=== PATIENT | female | born 1975 | race Caucasian/White ===

== ENCOUNTER 2024-01-19 02:10 | Day surgery (SDC) | payer BC, SELFPAY ==
[2024-01-05 14:04] VITALS: BMI 31.8
[2024-01-19 12:00] VITALS: BP 132/87; PULSE 107; RESP 20; TEMP 37.1; O2SAT 98; BMI 34.1
[2024-01-19] MEDS: LACTATED RINGERS 1,000 ML 150 ML IV CONT (12:18)
[2024-01-19 12:21] LABS: Glucose Point of Care 158 mg/dl (65-105)
--- NOTE | 2024-01-19 12:49 | PM.HPGS ---
History of Present Illness History of Present Illness Consent: Risks, benefits, and alternatives have been discussed and questions answered. Patient agrees to proceed with procedure. Chief complaint: Other fecal abnormalities Narrative: Carola Uriostegui is a 49 year old female here for first colonoscopy, + cologuard Review of Systems Review of Systems: All systems reviewed & are unremarkable except as noted in HPI and below PMFSH Past Medical History Medical History (Updated 12/06/23 @ 09:40 by TADEO Alcaraz) Anxiety disorder, unspecified BMI 34.0-34.9,adult BMI 35.0-35.9,adult BMI 36.0-36.9,adult BMI 37.0-37.9, adult Burning mouth syndrome Chest pain Cholecystectomy planned Constipation Dermatitis Diabetes type 2, controlled Gastroparesis due to DM IBS (irritable bowel syndrome) Insomnia Irritable bowel syndrome with both constipation and diarrhea Mastodynia Microalbuminuria Migraine Mixed hyperlipidemia Multiple sclerosis Primary open angle glaucoma of both eyes Pseudotumor cerebri Psoriasis Screen for colon cancer Therapeutic opioid-induced constipation (OIC) Tinea versicolor Type 2 diabetes mellitus with hyperglycemia Vaginal odor Surgical History Surgical History H/O tooth extraction Family History Family History Father Hypertension Family history of diabetes mellitus in first degree relative Depression COPD (chronic obstructive pulmonary disease) Diabetes mellitus Cataracts, both eyes Paranoid schizophrenia Grandparent Hypertension Family history of pancreatic cancer Mother Thyroid activity decreased Multiple sclerosis Hernia Colostomy complication Sibling Sjogren syndrome, unspecified History of IBS Hypertension Other Cerebrovascular accident Social History Social History Smoking status: Never smoker Second hand tobacco smoke exposure: Yes Alcohol intake: never Substance use: current Substance use type: marijuana Other substance usage details: CANNABIS GUMMIES Do You Feel Safe in your Home?: Yes Lack of Transportation: No Lack of Food: Never True Current Housing: I Have Housing Concerned About Future Housing: No Difficulty Paying Gas/Electric Bills: No Difficulty Paying for Meds: No Currently Unemployed: No Education: Associate Degree Difficulty w/ Childcare or Family Care: No Living arrangements: with family Occupation/Education: unemployed Additional occupation/education comments: Finance Gender identity (if verbalized by the patient): Female Spiritual care concerns: No Meds Home Medications and Allergies Home Medications Medication Instructions Recorded Confirmed Type albuterol sulfate 2.5 mg/3 mL 2.5 mg inhalation Q4H PRN 03/14/19 01/19/24 History (0.083 %) solution for nebulization Shortness Of Breath flash glucose scanning reader #1 ea 03/14/19 01/19/24 History (FreeStyle Nelly 14 Day [place]) naloxone 4 mg/actuation nasal 4 mg intranasal Q2-3M PRN OPIOID 03/14/19 01/19/24 History spray (Narcan) OVERUSE blood sugar diagnostic (Accu-Chek #50 ea 06/11/19 01/19/24 Rx Dee Plus test strips) lancets #50 ea 06/11/19 01/19/24 Rx metoclopramide HCl 10 mg tablet See Rx Instructions .Route 03/02/20 01/19/24 Rx .COMPLEX #60 tabs albuterol sulfate 90 mcg/actuation 2 puff inhalation Q4H PRN 02/23/22 01/19/24 Rx aerosol inhaler (ProAir HFA) shortness of breath or wheezing #18 grams insulin aspart U-100 100 unit/mL 1 sliding scale dose subcut 08/13/22 01/19/24 Rx (3 mL) subcutaneous pen (Novolog USEASDIRECTD #75 syringes FlexPen U-100 Insulin aspart) apremilast 30 mg tablet (Otezla) 30 mg PO BID 09/13/22 01/19/24 History methylnaltrexone 150 mg tablet 150 mg PO DAILY #90 tabs 09/13/22 01/19/24 Rx (Relistor)
--- NOTE | 2024-01-19 12:53 | WPDANESEPP ---
Anes - Eval Pre Procedure Procedure: Operation Date: 01/19/24 13:00 Proposed Procedures p Colonoscopy - Abisai Desai MD Date/Time: 01/19/24 12:53 Surgeon: kaushik Pre Op Diagnosis: Other fecal abnormalities Patient Data Age: 49 Gender: F Height: 1.73 m Weight: 101.8 kg Last Vital Signs Temp 37.1 C 01/19/24 12:00 Pulse 107 H 01/19/24 12:00 Resp 20 01/19/24 12:00 BP 132/87 01/19/24 12:00 Pulse Ox 98 01/19/24 12:00 O2 Del Method Room Air 01/19/24 12:00 Allergies Allergy/AdvReac Type Severity Reaction Status Date / Time levofloxacin Allergy Intermediate BEHAVIORAL Verified 01/19/24 11:59 CHANGES Tetracyclines Allergy Intermediate INCREASED Verified 01/19/24 11:59 CSF benazepril Allergy Unknown Cough Verified 01/19/24 11:59 cefuroxime Allergy Unknown Rash Verified 01/19/24 11:59 cimetidine Allergy Unknown Rash Verified 01/19/24 11:59 clavulanic acid Allergy Unknown FAMILY HX Verified 01/19/24 11:59 OF ALGRY coconut oil Allergy Unknown HEADAHCE Verified 01/19/24 11:59 iodine Allergy Unknown Rash Verified 01/19/24 11:59 pregabalin Allergy Unknown Rash Verified 01/19/24 11:59 BETALACTAMASEIN Allergy Mild NAUSEA AND Uncoded 01/19/24 11:59 VOMITING Contrast Media Allergy Mild RASH Uncoded 01/19/24 11:59 palm kernel oil Allergy Mild itches/rash Uncoded 01/19/24 11:59 Home Medications Medication Instructions Recorded Confirmed Type albuterol sulfate 2.5 mg/3 mL 2.5 mg inhalation Q4H PRN 03/14/19 01/19/24 History (0.083 %) solution for nebulization Shortness Of Breath flash glucose scanning reader #1 ea 03/14/19 01/19/24 History (FreeStyle Nelly 14 Day Purchase) naloxone 4 mg/actuation nasal 4 mg intranasal Q2-3M PRN OPIOID 03/14/19 01/19/24 History spray (Narcan) OVERUSE blood sugar diagnostic (Accu-Chek #50 ea 06/11/19 01/19/24 Rx Dee Plus test strips) lancets #50 ea 06/11/19 01/19/24 Rx metoclopramide HCl 10 mg tablet See Rx Instructions .Route 03/02/20 01/19/24 Rx .COMPLEX #60 tabs albuterol sulfate 90 mcg/actuation 2 puff inhalation Q4H PRN 02/23/22 01/19/24 Rx aerosol inhaler (ProAir HFA) shortness of breath or wheezing #18 grams insulin aspart U-100 100 unit/mL 1 sliding scale dose subcut 08/13/22 01/19/24 Rx (3 mL) subcutaneous pen (Novolog USEASDIRECTD #75 syringes FlexPen U-100 Insulin aspart) apremilast 30 mg tablet (Otezla) 30 mg PO BID 09/13/22 01/19/24 History methylnaltrexone 150 mg tablet 150 mg PO DAILY #90 tabs 09/13/22 01/19/24 Rx (Relistor) pen needle, diabetic 31 gauge x #600 ea 12/14/22 01/19/24 Rx 5/16 (BD Ultra-Fine Short Pen Needle) flash glucose sensor (FreeStyle See Rx Instructions .Route 05/15/23 01/19/24 Rx Nelly 14 Day Sensor kit) .COMPLEX #2 kits insulin glargine 100 unit/mL (3 70 unit (0.7 mL) subcut BID #90 mL 07/04/23 01/19/24 Rx mL) subcutaneous pen (Basaglar KwikPen U-100 Insulin) amitriptyline 100 mg tablet 100 mg PO QHS #90 tabs 08/22/23 01/19/24 Rx buspirone 30 mg tablet See Rx Instructions .Route 08/24/23 01/19/24 Rx .COMPLEX #135 tabs ondansetron HCl 8 mg tablet 8 mg PO Q8H PRN nausea and 08/24/23 01/19/24 Rx vomiting #20 tabs thyroid (pork) 30 mg tablet 30 mg PO DAILY #90 tabs 08/24/23 01/19/24 Rx ([place] Thyroid) metformin 500 mg tablet,extended 2,000 mg PO DAILY #360 tabs 10/06/23 01/19/24 Rx release 24 hr nystatin 100,000 unit/gram topical 1 applic topical BID #60 grams 10/06/23 01/19/24 Rx powder (Nystop) omeprazole 40 mg capsule,delayed See Rx Instructions .Route 11/16/23 01/19/24 Rx release .COMPLEX #180 caps sertraline 100 mg tablet See Rx Instructions .Route 11/16/23 01/19/24 Rx .COMPLEX #180 tabs sitagliptin phosphate 100 mg See Rx Instructions .Route 11/16/23 01/19/24 Rx tablet (Januvia) .COMPLEX #90 tabs losartan 25 mg tablet 25 mg PO DAILY #90 tabs 11/30/23 01/19/24 Rx cyclobenzaprine 10 mg tablet See Rx Instructions .Route
[2024-01-19 13:18] VITALS: BP 127/78; PULSE 89; RESP 20; O2SAT 100
[2024-01-19 13:28] VITALS: BP 131/90; PULSE 73; RESP 20; O2SAT 100
[2024-01-19 13:38] VITALS: BP 125/83; PULSE 81; RESP 20; O2SAT 100
[2024-01-19 13:42] LABS: Glucose Point of Care 140 mg/dl (65-105)
== END 2024-01-19 13:52 | disposition home or self-care (01) ==
PROVIDERS: PCP Family Medicine; Referring Provider Nurse Practitioner Family; Visit Provider Internal Medicine Gastroenterology
PROC: 0DJD8ZZ Inspection of Lower Intestinal Tract, Via Natural or Artificial Opening Endoscopic (ICD-10-PCS; CPT 45378; principal; 2024-01-19 13:00)
DX: K64.8 Other hemorrhoids (principal); E78.2 Mixed hyperlipidemia; G35 Multiple sclerosis; E11.65 Type 2 diabetes mellitus with hyperglycemia; F41.9 Anxiety disorder, unspecified; K58.2 Mixed irritable bowel syndrome; G47.00 Insomnia, unspecified; G93.2 Benign intracranial hypertension; F12.90 Cannabis use, unspecified, uncomplicated; Z79.51 Long term (current) use of inhaled steroids; Z79.4 Long term (current) use of insulin; Z79.85 Long-term (current) use of injectable non-insulin antidiabetic drugs; Z79.84 Long term (current) use of oral hypoglycemic drugs; Z79.82 Long term (current) use of aspirin; Z79.891 Long term (current) use of opiate analgesic; Z98.890 Other specified postprocedural states; Z80.0 Family history of malignant neoplasm of digestive organs; Z82.49 Family history of ischemic heart disease and other diseases of the circulatory system
CPT/HCPCS: 45378; 82948; J2003; J2704; J7120

== ENCOUNTER 2024-04-18 16:10 | Outpatient (CLI) | payer BC, SELFPAY ==
--- NOTE | ~2024-04-18 | XR_ITS ---
EXAM: XR wrist LT w scaphoid DATE: 04/18/2024 16:41 HISTORY: M25.432 - Effusion, left wrist . COMPARISON: None available. FINDINGS: Normal mineralization. No fracture or dislocation. No lytic or blastic lesion. Mild scatte red degenerative change.. No erosion or periosteal change. Soft tissues within normal limits. 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 Reviewed, dictated and finalized at location [facility]
== END 2024-04-18 16:11 | disposition home or self-care (01) ==
LOC: MICIMG 16:11
PROVIDERS: PCP Family Medicine; Visit Provider Nurse Practitioner Family
DX: M25.432 Effusion, left wrist (principal); M19.032 Primary osteoarthritis, left wrist
CPT/HCPCS: 73110

== ENCOUNTER 2024-06-18 14:17 | Outpatient (CLI) | payer BC, SELFPAY ==
--- NOTE | ~2024-06-18 | MM_ITS ---
EXAMINATION: MM screening gabriel BI w [facility] HISTORY: Screening mammogram TECHNIQUE: Craniocaudal and mediolateral oblique 3-D tomosynthesis images were obtained and synthetic 2-D images were generated. CAD analysis was submitted and interpreted. COMPARISON: No prior mammogram is available for comparison at this institution. BREAST PARENCHYMAL COMPOSITION:Not Dense. The breasts are almost entirely fatty FINDINGS: No suspicious mass, calcification, or architectural distortion are identified in either kelly ast to suggest malignancy. There has been no suspicious interval change. IMPRESSION: No mammographic evidence of malignancy. Recommend routine screening mammography in one year. BI-RADS Category 1: Negative Reviewed, dictated and finalized at location .
== END 2024-06-18 14:18 | disposition home or self-care (01) ==
LOC: MICIMG 14:17
PROVIDERS: PCP Family Medicine; Visit Provider Family Medicine
DX: Z12.31 Encounter for screening mammogram for malignant neoplasm of breast (principal)
CPT/HCPCS: 77063; 77067